=== PATIENT | female | born 1945 | race Hispanic/Latino ===

== ENCOUNTER → 2020-02-08 | Outpatient (CLI) | payer MEDICARE ==
--- NOTE | 2020-02-08 11:16 | Diagnostic Imaging Report ---
MRI BRAIN WO, MRI ORBIT WO HISTORY: Optic atrophy COMPARISON: None. TECHNIQUE: Multiplanar, multisequence MRI of the brain (including diffusion-weighted imaging) and orbits was performed without the administration of intravenous, gadolinium based contrast. DISCUSSION: BRAIN: Scalp/bone marrow: Unremarkable. Brain sulci: Appropriate for patient's age. Ventricles: Normal in size and configuration. No hydrocephalus. Extra-axial spaces: No masses or fluid collections. Parenchyma: A small focus of mild cortical diffusion restriction (bright on DWI, isointense on ADC) in the left superior parietal lobule (precuneus region) is compatible with subacute ischemia. No other diffusion restricting abnormalities are seen. Scattered T2/FLAIR hyperintense foci throughout the supratentorial white matter and matt are likely chronic microvascular ischemic changes. Otherwise, no mass or hemorrhage. Vessels: Normal flow voids in major arteries and veins. Sellar/Suprasellar region: No abnormalities. Craniocervical junction: No abnormalities. Incidental findings: None. ORBITS: The orbital shields are grossly intact. Bilateral ocular lens replacement is noted. The ocular globes and extraocular muscles are otherwise normal in morphology. The right optic nerve is mildly atrophic The left optic nerve, optic chiasm, and bilateral optic tracts are otherwise normal in morphology. The intraconal and extraconal spaces, including the lacrimal glands, are unremarkable. The cavernous sinuses are grossly unremarkable. Meckel's caves are clear. The cavernous carotid flow voids are preserved. IMPRESSION: BRAIN: 1. 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 2. Otherwise, no acute intracranial abnormalities. 3. Moderate supratentorial/pontine chronic microvascular ischemic change. ORBITS: 1. Mildly atrophic right optic nerve. 2. Bilateral ocular lens replacement. 3. Otherwise, unremarkable MRI of the orbits. Signed by: Dr. Baldemar Sargent M.D. on 02/08/2020 11:12 AM
== END ==
LOC: MRI 09:02
PROVIDERS: ATTEND Ophthalmology
DX: H47.291 Other optic atrophy, right eye (principal)
CPT/HCPCS: 70540; 70551